=== PATIENT | female | born 1950 | race Caucasian/White ===

== ENCOUNTER → 2017-03-12 | Outpatient (CLI) | payer OTHER ==
--- NOTE | 2017-03-12 09:29 | MAM ---
History: Well woman exam. Date of exam: 03/12/2017 Services provided: Bilateral full field digital screening mammography. CAD, the images were reviewed with R2 computer aided detection. FINDINGS: Glandular tissue is scattered glandular contour with increased mammographic density. Study is compared with 2014 exam. A small group of calcifications in the outer right breast are stable since the more remote study. Glandular parenchymal pattern is unchanged. No dominant mass or architectural distortion. IMPRESSION: Benign exam Recommendation: Routine annual mammography BIRAD CATEGORY: 2 BENIGN Electronically signed by: Cayla Burden MD 03/12/2017 9:28 AM CDT Workstation: [facility]
== END ==
LOC: MAMMO 08:14
PROVIDERS: ATTEND Emergency Medicine
DX: Z12.31 Encounter for screening mammogram for malignant neoplasm of breast (principal)

== ENCOUNTER → 2018-03-18 | Outpatient (CLI) | payer OTHER, MEDICARE ==
--- NOTE | 2018-03-22 15:24 | MAM ---
EXAM DESCRIPTION: 3D Screening BILATERAL : Digital Mammography. CLINICAL HISTORY: 68 years Female SCREENING "small spots on my right breast that have been watching". No current complaints. Mother with breast cancer. Childbirth. Postmenopausal. Taking HRT 5 or more years ago.. COMPARISON: 2-D digital screening bilateral study 03/12/2017.. 05/01/2016. Reports from prior examinations also reviewed. TECHNIQUE: Bilateral CC and MLO projection full-field images, 3-D tomosynthesis digital mammographic technique. CAD not utilized. FINDINGS: The breast parenchymal density pattern is: Heterogeneously dense breast tissue, which may obscure small masses. No skin thickening or nipple retraction. Bilateral solitary microcalcifications. No new focal, stellate mass or density, focal asymmetry , and no suspicious microcalcifications bilaterally. Stable mammograms compared to prior study, taking into account differences in mammographic technique. IMPRESSION: BI-RADS CATEGORY: 2 - BENIGN FINDINGS. FOLLOW UP: Routine digital bilateral screening, one year interval from February 2018. Written communication explaining the IMPRESSION and follow-up, will be mailed to the patient and referring health care provider. According to the [employer], yearly mammograms are recommended starting at age 40 and continuing as long as a woman is in good health. Any breast change noted on a breast self-exam should be reported promptly to the patient's healthcare provider. Breast MRI is recommended for women with an approximately 20-25% or greater lifetime risk of breast cancer, including women with a strong family history of breast or ovarian cancer and women who have been treated for Hodgkin's disease. A negative mammographic report should not delay tissue diagnosis in patients with significant clinical history or physical findings. Extremely dense breast tissue limits the sensitivity of digital mammography. Electronically signed by: Qasim Quick MD 03/22/2018 3:23 PM CDT
== END ==
LOC: MAMMO 15:42
PROVIDERS: ATTEND Emergency Medicine
DX: Z12.31 Encounter for screening mammogram for malignant neoplasm of breast (principal)

== ENCOUNTER → 2019-01-06 | Outpatient (CLI) | payer MEDICARE, OTHER ==
--- NOTE | 2019-01-06 14:21 | MRI ---
Study: MRI of the Right Shoulder. Indication: ROTATOR CUFF TEAR Technique: Multiplanar, multi sequence MRI of the right shoulder was obtained without intravenous contrast. Comparison: None Findings: Moderate hypertrophic AC joint osteoarthritis with a small joint effusion. Mild type II acromion with moderate lateral downsloping. Small-volume subacromial/subdeltoid bursal fluid. High-grade supraspinatus and infraspinatus tendinosis. Irregular intermediate to high-grade articular tearing throughout the insertional fibers of the supraspinatus tendon and anterior half infraspinatus tendon. Tearing is filled with granulation tissue. The involved area measures up to 22 mm transverse by 27 mm AP. Changes most pronounced at the critical zone of the posterior supraspinatus tendon where there is involvement of up to 75% of expected tendon thickness. No full-thickness tear or tendon retraction. Subscapularis tendinosis with low-grade interstitial tearing superiorly. Teres minor tendon intact. Grade 1 fatty infiltration rotator cuff musculature. Long head biceps tendinosis without transection. Circumferential labral tearing and truncation. Minimal glenohumeral joint osteoarthritis with a moderate size joint effusion. No acute fracture. Thickening and edema inferior glenohumeral ligament which can be seen with adhesive capsulitis. Mild cystic change of the humeral head along the medial margin of the horizontal footprint. Impression: High-grade supraspinatus and infraspinatus tendinosis with irregular intermediate to high-grade articular tearing throughout the insertional fibers of the supraspinatus tendon and anterior infraspinatus tendon. Tearing is partially filled with granulation tissue. Subscapularis tendinosis with low-grade interstitial tearing superiorly. Grade 1 fatty infiltration rotator cuff musculature. Long head biceps tendinosis. Circumferential labral tearing and truncation. Minimal glenohumeral joint osteoarthritis and moderate size joint effusion. Adhesive capsulitis. Moderate hypertrophic AC joint osteoarthritis. Electronically signed by: Julius Camp MD 01/06/2019 2:18 PM CDT
--- NOTE | 2019-01-06 14:39 | CT ---
Study: CT abdomen and pelvis. Indication: RLQ PAIN Technique: Noncontrast, venous, and delayed phase CT imaging of the abdomen and pelvis obtained after intravenous administration of contrast. This exam was performed according to our departmental dose-optimization program, which includes automated exposure control, adjustment of the mA and/or kV according to patient size and/or use of iterative reconstruction technique. Comparison: None. Findings: Lower chest, liver, gallbladder, pancreas, spleen, adrenal glands, bladder, and right kidney unremarkable. Uterus and ovaries likely surgically absent or small. Small left peripelvic renal cysts noted. Tiny hiatal hernia. Stomach, small bowel, and appendix unremarkable. Modified diverticulosis. Very subtle inflammation of the deep pelvis adjacent to the colon concerning for very mild colonic diverticulitis. No perforation or abscess. No free fluid. No free air. Atherosclerosis aorta. Degenerative changes of the spine noted. Bilateral L5 spondylolysis and grade 1 spondylolisthesis. Impression: Very subtle findings concerning for acute sigmoid colon diverticulitis. No perforation or abscess. Additional findings as above. Electronically signed by: Julius Camp MD 01/06/2019 2:36 PM CDT
== END ==
LOC: MRI 07:00
PROVIDERS: ATTEND Emergency Medicine
DX: R10.31 Right lower quadrant pain (principal); M75.101 Unspecified rotator cuff tear or rupture of right shoulder, not specified as traumatic; M19.011 Primary osteoarthritis, right shoulder; M75.21 Bicipital tendinitis, right shoulder; M75.01 Adhesive capsulitis of right shoulder; M75.80 Other shoulder lesions, unspecified shoulder

== ENCOUNTER → 2019-04-22 | Outpatient (CLI) | payer MEDICARE, OTHER ==
--- NOTE | 2019-04-25 16:31 | MAM ---
EXAM DESCRIPTION: 3D Screening BILATERAL : Digital Mammography. CLINICAL HISTORY: 69 years Female ANNUAL SCREENING . No complaints. No personal history of breast cancer. Mother with breast cancer. Childbirth. Postmenopausal 40+ years. No HRT.. Lifetime risk of developing breast cancer (Tyrer-Cuzick model)(%): 9.5. COMPARISON: Bilateral screening digital breast tomosynthesis 03/18/2018.. TECHNIQUE: Bilateral CC and MLO projection full-field images, digital tomosynthesis mammographic technique. Bilateral digital 2-D full-field MLO images. CAD not available for tomosynthesis or 2-D images. FINDINGS: The breast parenchymal density pattern is: Heterogeneously dense breast tissue, which may obscure small masses. No skin thickening or nipple retraction. Bilateral small microcalcifications are stable. No new focal, stellate mass or density, focal asymmetry , and no suspicious microcalcifications bilaterally. Stable mammograms compared to prior study. IMPRESSION: Benign exam. BIRAD CATEGORY: 2 BENIGN FINDINGS. RECOMMENDATIONS: FOLLOW UP: Routine digital bilateral mammographic screening, one year interval from March 2019. Written communication explaining the IMPRESSION and follow-up, will be mailed to the patient and referring health care provider. According to the [employer], yearly mammograms are recommended starting at age 40 and continuing as long as a woman is in good health. Any breast change noted on a breast self-exam should be reported promptly to the patient's healthcare provider. Breast MRI is recommended for women with an approximately 20-25% or greater lifetime risk of breast cancer, including women with a strong family history of breast or ovarian cancer and women who have been treated for Hodgkin's disease. A negative mammographic report should not delay tissue diagnosis in patients with significant clinical history or physical findings. Extremely dense breast tissue limits the sensitivity of digital mammography. Electronically signed by: Qasim Quick MD 04/25/2019 4:30 PM CDT
== END ==
LOC: MAMMO 08:45
PROVIDERS: ATTEND Surgery
DX: Z12.31 Encounter for screening mammogram for malignant neoplasm of breast (principal)

== ENCOUNTER → 2019-11-16 | Outpatient (CLI) | payer MEDICARE, OTHER ==
--- NOTE | 2019-11-17 13:30 | RAD ---
EXAM DESCRIPTION: Lumbar Spine 3 Views CLINICAL HISTORY: LOW BACK PAIN COMPARISON: CT abdomen and pelvis 01/06/2019. TECHNIQUE: AP/lateral/coned-down lateral views lumbar spine. FINDINGS: Conventional five nonrib-bearing lumbar segments. Mild levocurvature of the mid lumbar spine. Chronic L5 bilateral pars defects/spondylolysis with grade 2 anterolisthesis of L5 on S1 (by approximately 9 mm). The vertebral body heights are relatively maintained. No displaced fracture or significantly appearing subluxation is seen. Multilevel degenerative changes with intervertebral disc height loss, endplate sclerosis and marginal osteophyte are most pronounced at L2-L3 and L5-S1. Moderate lower lumbar spine facet degeneration. Diffuse osteopenia. IMPRESSION: 1. L5 spondylolysis with grade 2 anterolisthesis of L5-S1, chronic in appearance. 2. Multilevel lumbar spine degenerative changes most pronounced at L2-L3 and L5-S1. Electronically signed by: Jeromy Escalante DO 11/17/2019 1:28 PM [employer]
== END ==
LOC: RAD 19:12
PROVIDERS: ATTEND Nurse Practitioner
DX: M43.06 Spondylolysis, lumbar region (principal); M47.896 Other spondylosis, lumbar region; M47.897 Other spondylosis, lumbosacral region

== ENCOUNTER → 2020-04-27 | Outpatient (CLI) | payer MEDICARE, OTHER ==
--- NOTE | 2020-05-01 15:14 | MAM ---
EXAM DESCRIPTION: 3D Screening BILATERAL : Digital Mammography. CLINICAL HISTORY: 70 years Female ANNUAL SCREENING . No complaints. Menarche age 17. Childbirth age 22. Hysterectomy age 27. No HRT. Lifetime risk of developing breast cancer (Tyrer-Cuzick model)(%): 9.1. COMPARISON: Bilateral screening digital breast tomosynthesis March 2019 and in 2018. TECHNIQUE: Bilateral CC and MLO projection full-field images, digital tomosynthesis mammographic technique. Bilateral digital 2-D full-field MLO images. CAD available for 2-D images. FINDINGS: The breast parenchymal density pattern is: Heterogeneously dense breast tissue, which may obscure small masses. No skin thickening or nipple retraction. Solitary microcalcifications. Cluster of benign type microcalcifications in the right breast. No new focal, stellate mass or density, focal asymmetry , and no suspicious microcalcifications bilaterally. Stable mammograms compared to prior study. IMPRESSION: Benign exam. BIRAD CATEGORY: 2 BENIGN FINDINGS. RECOMMENDATIONS: FOLLOW UP: Routine digital bilateral mammographic screening, one year interval from March 2020. Written communication explaining the IMPRESSION and follow-up, will be mailed to the patient and referring health care provider. According to the [employer], yearly mammograms are recommended starting at age 40 and continuing as long as a woman is in good health. Any breast change noted on a breast self-exam should be reported promptly to the patient's healthcare provider. Breast MRI is recommended for women with an approximately 20-25% or greater lifetime risk of breast cancer, including women with a strong family history of breast or ovarian cancer and women who have been treated for Hodgkin's disease. A negative mammographic report should not delay tissue diagnosis in patients with significant clinical history or physical findings. Extremely dense breast tissue limits the sensitivity of digital mammography. Electronically signed by: Qasim Quick MD 05/01/2020 3:12 PM CDT
== END ==
LOC: MAMMO 08:00
PROVIDERS: ATTEND Emergency Medicine
DX: Z12.31 Encounter for screening mammogram for malignant neoplasm of breast (principal)